=== PATIENT | female | born 1970 | race Hispanic/Latino ===

== ENCOUNTER 2018-06-18 15:59 | Emergency (ER) | payer MEDICARE ==
[2018-06-18 16:14] VITALS: TEMP 98
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
[2018-06-18 17:49] VITALS: RESP 18; O2SAT 98
[2018-06-18 18:58] LABS: BARBITURATES, UR NEGATIVE (NEGATIVE); BENZODIAZEPINES, UR POSITIVE (NEGATIVE); OPIATES, UR NEGATIVE (NEGATIVE); PHENCYCLIDINE, UR NEGATIVE (NEGATIVE)
[2018-06-18 19:12] VITALS: BP 118/75; PULSE 85
== END 2018-06-18 19:11 | disposition home or self-care (01) ==
LOC: ED 15:59
DX: R82.5 Elevated urine levels of drugs, medicaments and biological substances (principal); I10 Essential (primary) hypertension; F31.9 Bipolar disorder, unspecified